=== PATIENT | female | born 1960 | race Caucasian/White ===

== ENCOUNTER 2024-04-13 07:39 | Outpatient (CLI) | payer BC | END 2024-04-13 07:40 | disposition home or self-care (01) | LOC: NM 07:39 | PROVIDERS: ATTEND Internal Medicine | DX: R10.13 Epigastric pain (principal); R11.0 Nausea; R63.4 Abnormal weight loss; K31.84 Gastroparesis | CPT/HCPCS: 78264; A9541 ==